=== PATIENT | male | born 1940 | race Hispanic/Latino ===

== ENCOUNTER 2017-09-19 12:05 | Inpatient (IN) | payer MEDICARE ==
[2017-09-19 12:16] VITALS: BMI 33.5
[2017-09-19 12:34] LABS: VENOUS BLOOD GAS BASE EXCESS 1.4 mmol/L (0.0-2.0); VENOUS BLOOD GAS PO2 41 mm/Hg (30-55); VENOUS BLOOD PH 7.34 (7.32-7.43)
[2017-09-19 12:36] LABS: BASO # 0.04 K/mm3 (0.0-2.0); BASO % 0.3 % (0.0-3.0); EOS # 0.1 (0.0-0.7); GRAN # 11.48 (1.4-6.5); GRAN % 90.3 % (50.0-68.0); HEMOGLOBIN 15.4 g/dL (14.0-18.0); LYMPH # 0.7 (1.2-3.4); LYMPH % 5.6 % (22.0-35.0); MEAN CELL VOLUME 88.6 fl (80.0-105.0); MEAN CORPUSCULAR HEMOGLOBIN 30.4 pg (25.0-35.0); MEAN CORPUSCULAR HGB CONC 34.3 g/dl (31.0-37.0); MEAN PLATELET VOLUME 10.3 fl (7.0-11.0); MONO # 0.4 (0.1-0.6); MONO % 2.8 % (1.0-6.0); PLATELET COUNT 123 10^3/uL (120.0-450.0); RBC 5.07 10^6/uL (3.5-6.1); RED CELL DISTRIBUTION WIDTH 14.2 % (11.5-14.5); WHITE BLOOD COUNT 12.7 10^3/ul (4.5-11.0)
--- NOTE | 2017-09-19 12:37 | ED PDOC ---
Arrival/HPI - General Chief Complaint: Altered Mental Status Time Seen by Provider: 09/19/17 12:23 Historian: Patient, Spouse, Family (daughter) - History of Present Illness Narrative History of Present Illness (Text): 09/19/17 12:30 76 y/o male, whose PMH includes HTN, hypercholesterolemia, DM, and kidney stones , who presents to the emergency department accompanied with and daughter, s /p showing signs of confusion prior to arrival. 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 According to his , she states patient "is not acting himself". Patient notes he is asymptomatic and is not confused. Very limited HPI was provided from patient. He declines chest pain, shortness of breath, nausea, vomiting, diarrhea, dizziness, or other complaints. Time/Duration: Prior to Arrival Symptom Onset: Sudden Symptom Course: Unchanged Context: Home Past Medical History - Provider Review Nursing Documentation Reviewed: Yes - Infectious Disease Hx of Infectious Diseases: None - Cardiac Hx Hypertension: Yes - Endocrine/Metabolic Hx Diabetes Mellitus Type 2: Yes - Psychiatric Hx Substance Use: No - Anesthesia Hx Anesthesia: No Family/Social History - Physician Review Nursing Documentation Reviewed: Yes Family/Social History: Unknown Family HX Smoking Status: Current Some Days Smoker Hx Alcohol Use: No Hx Substance Use: No Allergies/Home Meds Allergies/Adverse Reactions: Allergies No Known Allergies Allergy (Verified 09/19/17 12:16) Home Medications: Home Meds Medication Instructions Recorded Confirmed Aspirin [Adult Aspirin] 325 mg PO DAILY 09/19/17 09/19/17 Cod Liver Oil 1 cap PO DAILY 09/19/17 09/19/17 Folic Acid 1 mg PO DAILY 09/19/17 09/19/17 MetFORMIN [glucOPHAGE] 1,000 mg PO DAILY 09/19/17 09/19/17 Multivitamin/Iron/Folic Acid 1 each PO DAILY 09/19/17 09/19/17 [Centrum Adults Tablet] Silodosin [Rapaflo] 8 mg PO DAILY 09/19/17 09/19/17 Simvastatin [Zocor] 40 mg PO DAILY 09/19/17 09/19/17 Valsartan/Hydrochlorothiazide 1 tab PO DAILY 09/19/17 09/19/17 [Valsartan and Hydrochlorothiazide 12.5 mg-80 ] Vitamin B Complex [Vitamin B50 1 cap PO DAILY 09/19/17 09/19/17 Super Complex] Review of Systems - Review of Systems Constitutional: absent: Fevers Eyes: absent: Vision Changes Respiratory: absent: SOB Cardiovascular: absent: Chest Pain Gastrointestinal: absent: Abdominal Pain Genitourinary Male: absent: Dysuria Musculoskeletal: absent: Back Pain Skin: absent: Rash Neurological: Gait Changes (unsteady ), Other (confusion according to family ). absent: Headache, Dizziness Endocrine: absent: Diaphoresis Physical Exam Vital Signs Reviewed: Yes Vital Signs Temp Pulse Resp BP Pulse Ox 09/19/17 20:52 80 18 118/72 97 09/19/17 18:42 98.5 F 84 18 116/54 L 95 09/19/17 14:22 100.6 F H 97 H 18 117/53 L 95 09/19/17 13:50 101 F H 09/19/17 12:06 101.0 F H 109 H 18 138/75 95 Temperature: Febrile Blood Pressure: Normal Pulse: Tachycardic Respiratory Rate: Normal Appearance: Positive for: Well-Appearing, Non-Toxic, Comfortable Pain Distress: None Mental Status: Positive for: Alert and Oriented X 3 Finger Stick Blood Glucose: 193 - Systems Exam Head: Present: Atraumatic, Normocephalic Pupils: Present: PERRL Extroacular Muscles: Present: EOMI Conjunctiva: Present: Normal Respiratory/Chest: Present: Clear to Auscultation, Good Air Exchange. No: Respiratory Distress, Accessory Muscle Use, Wheezes, Decreased Breath Sounds, Rales, Retracting, Rhonchi Cardiovascular: Present: Regular Rate and Rhythm, Normal S1, S2. No: Murmurs Abdomen: Present: Normal Bowel Sounds. No: Tenderness, Distention, Peritoneal Signs, Rebound, Guarding Upper Extremity: Present: Normal Inspection, Normal ROM, NORMAL PULSES, Neurovascularly Intact, Capillary Refill < 2s. No: Cyanosis, Edema, Tenderness , Swelling, Erythema Lower Extremity: Present: Normal Inspection, NORMAL PULSES, Normal ROM, Neurovascularly Intact, Capillary Refill < 2 s. No: Edema, Deformity Neurological: Present: GCS=15, CN II-XII Intact, Speech Normal, Motor Func Grossly Intact, Normal Sensory Function, Normal Cerebellar Funct, Norm Deep Tendon Reflexes, Memory Normal Skin: Present: Warm, Dry, Normal Color. No: Rashes Psychiatric: Present: Alert, Oriented x 3, Normal Insight, Normal Concentration Medical Decision Making ED Course and Treatment: 09/19/17 Impressions: 76 y/o male with unremarkable physical exam complaining of confusion and unsteady balance. Plans: -- CT head -- Labs -- CXR -- Urinalysis Progress Notes: 09/19/17 13:00 EKG: Ordered, reviewed, and independently interpreted the EKG. Rate : 108 BPM Rhythm : Sinus tachycardia Interpretation : No ST-segment elevations or depressions, no T-wave inversions, normal intervals. 09/19/17 13:07 CODE SEPSIS CALLED AT 1:07 PM 09/19/17 13:12 CT Head read by me detects subacute area infared. I will contact Dr. Montes, neurologist, to discuss plan and management. Patient is currently being given fluids due to sepsis and waiting for Chest X-ray results. 09/19/17 13:20 Case was discussed with Dr. Montes, who is aware of plan and recommends MRI of brain with and without contrast. He also suggest to give patient Tylenol for fever and baby Aspirin. Dr. Montes will be contacted when MRI results come back. 09/19/17 13:[address]: Creator : Patrick Arce MD FINDINGS: HEMORRHAGE: No intracranial hemorrhage. BRAIN: No mass effect or edema. There is a wedge-shaped area of hypodensity in the right inferior frontal lobe measuring 16 x 36 mm. This could represent a subacute or chronic infarct. There are no prior studies for comparison VENTRICLES: Unremarkable. No hydrocephalus. CALVARIUM: Unremarkable. PARANASAL SINUSES: Unremarkable as visualized. No significant inflammatory changes. MASTOID AIR CELLS: Unremarkable as visualized. No inflammatory changes. OTHER FINDINGS: None. IMPRESSION: There is a wedge-shaped area of hypodensity in the right inferior frontal lobe measuring 16 x 36 mm. This could represent a subacute or chronic infarct. There are no prior studies for comparison 09/19/17 14:00 Chest X-ray: Creator : Patrick Arce MD COMPARISON: 09/13/2015 FINDINGS: LUNGS: No active pulmonary disease. PLEURA: No significant pleural effusion identified, no pneumothorax apparent. CARDIOVASCULAR: Normal. OSSEOUS STRUCTURES: No significant abnormalities. VISUALIZED UPPER ABDOMEN: Normal. OTHER FINDINGS: None. IMPRESSION: No active disease. 09/19/17 17:00 Brain MRI: Creator : Patrick Arce MD FINDINGS: HEMORRHAGE: None DWI:No evidence of an acute or early subacute infarction. BRAIN PARENCHYMA: There is an enhancing mass arising from the anterior cranial fossa in the midline. This is most consistent with a meningioma. This measures 29 mm wide by 12 mm in height and 20 mm anterior to posterior. There is vasogenic edema in the right frontal lobe ENHANCEMENT: As above VENTRICLES: Unremarkable. No hydrocephalus. CRANIUM: Unremarkable. ORBITS: Grossly unremarkable. PARANASAL SINUSES/MASTOIDS:Clear VASCULAR SYSTEM: Skull base flow voids intact. OTHER FINDINGS: None . IMPRESSION: There is an enhancing mass arising from the anterior cranial fossa in the midline. This is most consistent with a meningioma. This measures 29 mm wide by 12 mm in height and 20 mm anterior to posterior. There is vasogenic edema in the right frontal lobe. No evidence of infarct. 09/19/17 17:20 PROCEDURE: LUMBAR PUNCTURE Performed by the emergency provider Dr. Jin Time: 05:00 Consent: Informed consent, after discussion of the risks, benefits, and alternatives to the procedure, was obtained Timeout: A timeout to verify the correct patient, procedure, and site was performed immediately prior to the procedure. Indication: Two attempts were made and unsuccessful. Standard 3 in needle was used and spinal needle the 2nd time. Anesthesia: Local anesthesia: See MAR for details. Preparation: Patient was prepped and draped in the usual sterile fashion and sterile technique was used. The landmarks were identified. Needle size: A 3 in gauge spinal needle. Lumbar entry space: L3-L4 and L4-L5 level. Fluid appearance: Unsuccessful. Post-procedure: Site cleansed and adhesive bandage applied. The patient tolerated the procedure well with no immediate complications. does not want radioligst to do the procedure under flouro - Lab Interpretations Microbiology Results: Microbiology Results 09/19/17 13:55 Blood-Venous Blood Culture - Preliminary NO GROWTH AFTER 24 HOURS 09/19/17 12:11 Blood-Venous Blood Culture - Preliminary NO GROWTH AFTER 24 HOURS Lab Results: 09/19/17 12:11 09/19/17 12:11 Lab Results 09/19/17 18:00: Hepatitis A IgM Ab Negative, Hep Bs Antigen Negative, Hep B Core IgM Ab Negative, Hepatitis C Antibody Negative 09/19/17 16:43: pO2 202 H, VBG pH 7.39, VBG pCO2 42.0, VBG HCO3 25.4, VBG Total CO2 26.7, VBG O2 Sat (Calc) 99.6 H, VBG Base Excess 0.3, VBG Potassium 3.9, Sodium 137.0, Chloride 103.0, Glucose 215 H, Lactate 2.3 H, FiO2 21.0, Venous Blood Potassium 3.9 09/19/17 15:25: Urine Color Yellow, Urine Appearance Sl cloudy, Urine pH 6.0, Ur Specific [place] 1.025, Urine Protein Trace H, Urine Glucose (UA) Negative, Urine Ketones Negative, Urine Blood Moderate H, Urine Nitrate Negative, Urine Bilirubin Negative, Urine Urobilinogen 1.0 H, Ur Leukocyte Esterase Trace H, Urine RBC 10 - 15, Urine WBC 2 - 5, Ur Epithelial Cells 4 - 5, Urine Bacteria Few 09/19/17 13:20: Ammonia < 9 L 09/19/17 12:11: Sodium 140, Chloride 102, Potassium 4.1, Carbon Dioxide 28, Anion Gap 14, BUN 15, Creatinine 0.9, Est GFR ( Amer) > 60, Est GFR (Non- Af Amer) > 60, Random Glucose 187 H, Calcium 9.9, Phosphorus 2.0 L, Magnesium 1.8, Total Bilirubin 1.6 H, AST 70 H, ALT 78 H, Alkaline Phosphatase 104, Lactate Dehydrogenase 496, Total Creatine Kinase 51, Troponin I < 0.01, Total Protein 7.3, Albumin 4.4, Globulin 2.9, Albumin/Globulin Ratio 1.6 09/19/17 12:11: pO2 41, VBG pH 7.34, VBG pCO2 52.0, VBG HCO3 28.1 H, VBG Total CO2 29.7 H, VBG O2 Sat (Calc) 79.7 H, VBG Base Excess 1.4, VBG Potassium 4.1, Sodium 139.0, Chloride 101.0, Glucose 193 H, Lactate 2.2 H, FiO2 21.0, Venous Blood Potassium 4.1 09/19/17 12:11: PT 12.6 H, INR 1.09 09/19/17 12:11: WBC 12.7 H, RBC 5.07, Hgb 15.4, Hct 44.9, MCV 88.6, MCH 30.4, MCHC 34.3, RDW 14.2, Plt Count 123, MPV 10.3, Gran % 90.3 H, Lymph % (Auto) 5.6 L, Crawford % (Auto) 2.8, Eos % (Auto) 1.0 L, Baso % (Auto) 0.3, Gran # 11.48 H, Lymph # (Auto) 0.7 L, Crawford # (Auto) 0.4, Eos # (Auto) 0.1, Baso # (Auto) 0.04, Neutrophils % (Manual) 90 H, Band Neutrophils % 3 H, Lymphocytes % (Manual) 4 L , Monocytes % (Manual) 1, Eosinophils % (Manual) 2 I have reviewed the lab results: Yes - RAD Interpretation Radiology Orders: 09/19/17 12:23 HEAD W/O CONTRAST [CT] Stat CHEST PORTABLE [RAD] Stat 09/19/17 13:16 BRAIN W & WO CONTRAST [MRI] Stat Banker Mason: Radiologist - EKG Interpretation Interpreted by ED Physician: Yes Type: 12 lead EKG - Medication Orders Current Medication Orders: Aspirin (Aspirin) 325 mg PO DAILY [facility] Last Admin: 09/20/17 09:54 Dose: 325 mg Atorvastatin Calcium (Lipitor) 20 mg PO DAILY [facility] Folic Acid (Folic Acid) 1 mg PO DAILY [facility] Last Admin: 09/20/17 09:54 Dose: 1 mg Hydrochlorothiazide (Microzide) 12.5 mg PO DAILY [facility] Last Admin: 09/20/17 09:54 Dose: 12.5 mg Ceftriaxone Sodium (Rocephin 2 Gm Ivpb) 2 gm in 100 mls @ 100 mls/hr IVPB DAILY [facility] PRN Reason: Protocol Stop: 09/29/17 10:01 Last Admin: 09/20/17 09:54 Dose: 100 mls/hr eMAR Start Stop Document 09/20/17 09:54 ANTOALL (Rec: 09/20/17 09:54 ANTOALL [id number]) Intravenous Solution Start Date 09/20/17 Start Time 09:54 End Date 08/06/18 End time 10:54 Total Infusion Time 60 Vancomycin HCl (Vancomycin 1gm) 1 gm in 250 mls @ 167 mls/hr IVPB Q12H [facility] PRN Reason: Protocol Stop: 09/28/17 23:01 Last Admin: 09/20/17 11:15 Dose: 167 mls/hr eMAR Start Stop Document 09/20/17 11:15 ANTOALL (Rec: 09/20/17 11:15 ANTOALL [id number]) Intravenous Solution Start Date 09/20/17 Start Time 11:15 End Date 09/20/17 End time 12:45 Total Infusion Time 90 Acyclovir 750 mg/ Sodium (Chloride) 250 mls @ 250 mls/hr IV Q8 [facility] PRN Reason: Protocol Stop: 09/29/17 06:01 Last Admin: 09/20/17 14:46 Dose: 250 mls/hr eMAR Start Stop Document 09/20/17 14:46 ANTOALL (Rec: 09/20/17 14:48 ANTOALL [id number]) Intravenous Solution Start Date 09/20/17 Start Time 14:47 End Date 09/20/17 End time 16:17 Total Infusion Time 90 Insulin Human Regular (Humulin R Med) 0 units SC ACHS [facility] PRN Reason: Protocol Last Admin: 09/20/17 17:24 Dose: Not Given Non-Admin Reason: Blood Sugar Parameter Levetiracetam (Keppra) 500 mg PO BID [facility] Last Admin: 09/20/17 17:24 Dose: 500 mg Losartan Potassium (Cozaar) 50 mg PO DAILY [facility] Last Admin: 09/20/17 09:54 Dose: 50 mg MAR Pulse and Blood Pressure Document 09/20/17 09:54 ANTOALL (Rec: 09/20/17 09:54 ANTOALL [id number]) Pulse Pulse Rate (60-90) 70 Blood Pressure Blood Pressure (100/60-150/90) 118/65 Metformin HCl (Glucophage) 1,000 mg PO DAILY [facility] Last Admin: 09/20/17 11:55 Dose: Potassium Phos/Sodium Phos (Neutra-Phos) 1 pkt PO BID [facility] Stop: 09/22/17 18:01 Last Admin: 09/20/17 17:25 Dose: 1 pkt Discontinued Medications Acetaminophen (Tylenol 325mg Tab) 975 mg PO STAT [facility] Stop: 09/19/17 13:16 Last Admin: 09/19/17 13:50 Dose: 975 mg MAR Pain/Vitals Document 09/19/17 13:50 GMD (Rec: 09/19/17 13:50 GMD [id number]) Vitals Temperature (97.6 F-99.6 F) 101 F Temperature Source Oral Aspirin (Aspirin Chewable) 81 mg PO STAT [facility] Stop: 09/19/17 13:16 Last Admin: 09/19/17 13:55 Dose: 81 mg Sodium Chloride (Sodium Chloride 0.9%) 1,000 mls @ 999 mls/hr IV .Q1H1M STA Stop: 09/19/17 14:06 Last Admin: 09/19/17 13:12 Dose: 999 mls/hr eMAR Start Stop Document 09/19/17 13:12 GMD (Rec: 09/19/17 13:12 GMD [id number]) Intravenous Solution Start Date 09/19/17 Start Time 13:12 End Date 09/19/17 End time 14:13 Total Infusion Time 61 Acyclovir 500 mg/ Sodium (Chloride) 100 mls @ 100 mls/hr IV STAT [facility] PRN Reason: Protocol Stop: 09/19/17 17:29 Last Admin: 09/19/17 18:52 Dose: 100 mls/hr eMAR Start Stop Document 09/19/17 18:52 GMD (Rec: 09/19/17 18:52 GMD [id number]) Intravenous Solution Start Date 09/19/17 Start Time 18:52 End Date 09/19/17 End time 19:52 Total Infusion Time 60 Ceftriaxone Sodium (Rocephin 1 Gram Ivpb) 1 gm in 100 mls @ 200 mls/hr IVPB STAT [facility] PRN Reason: Protocol Stop: 09/19/17 16:59 Last Admin: 09/19/17 16:45 Dose: 200 mls/hr eMAR Start Stop Document 09/19/17 16:45 GMD (Rec: 09/19/17 16:45 GMD [id number]) Intravenous Solution Start Date 09/19/17 Start Time 16:45 End Date 09/19/17 End time 17:15 Total Infusion Time 30 Vancomycin HCl (Vancomycin 1gm) 1 gm in 250 mls @ 167 mls/hr IVPB STAT [facility] PRN Reason: Protocol Stop: 09/19/17 17:59 Last Admin: 09/19/17 20:18 Dose: 167 mls/hr eMAR Start Stop Document 09/19/17 20:18 GMD (Rec: 09/19/17 20:18 GMD [id number]) Intravenous Solution Start Date 09/19/17 Start Time 20:18 End Date 09/19/17 End time 21:48 Total Infusion Time 90 Dexamethasone 4 mg/ Sodium (Chloride) 51 mls @ 150 mls/hr IV ONCE ONE Stop: 09/20/17 13:09 Last Admin: 09/20/17 13:40 Dose: 150 mls/hr eMAR Start Stop Document 09/20/17 13:40 ANTOALL (Rec: 09/20/17 13:40 ANTOALL [id number]) Intravenous Solution Start Date 09/20/17 Start Time 13:40 End Date 09/20/17 End time 14:01 Total Infusion Time 21 NIHSS Stroke Scale 3 - Date/Time Evaluation Performed Date Performed: 09/19/17 Time Performed: 12:20 When Was NIHSS Performed: Baseline - How Severe is the Stroke Level of Consciousness: 0=Alert LOC to Questions: 0=Both comments correct LOC to commands: 0=Obeys both correctly Best Gaze: 0=Normal Visual: 0=No visual loss Facial: 0=Normal Motor Arm - Left: 0=No drift Motor Arm - Right: 0=No drift Motor Leg - Left: 0=No drift Motor Leg - Right: 0=No drift Limb Ataxia: 0=Absent Sensory: 0=Normal Best Language: 0=No aphasia Dysarthia: 0=Normal articulation Extinction & Inattention (Neglect): 0=Normal, no object Score: 0 - Scribe Statement The provider has reviewed the documentation as recorded by the Scribe Scribe Attestation: Jahaira Young MD Scribe Attestation: All medical record entries made by the Scribe were at my direction and personally dictated by me. I have reviewed the chart and agree that the record accurately reflects my personal performance of the history, physical exam, medical decision making, and the department course for this patient. I have also personally directed, reviewed, and agree with the discharge instructions and disposition. Disposition/Present on Arrival - Present on Arrival Any Indicators Present on Arrival: No History of DVT/PE: No History of Uncontrolled Diabetes: No Urinary Catheter: No History of Decub. Ulcer: No History Surgical Site Infection Following: None - Disposition Have Diagnosis and Disposition been Completed?: Yes Diagnosis: Meningioma, Sepsis, Altered mental status, Gait instability Disposition: HOSPITALIZED Disposition Time: 20:00 Patient Plan: Admission Patient Problems: Current Active Problems Problem Status Onset Altered mental status Acute Gait instability Acute Meningioma Acute Sepsis Acute Condition: FAIR
[2017-09-19 12:39] LABS: INR 1.09; PROTHROMBIN TIME 12.6 SECONDS (9.4-12.5)
[2017-09-19 12:44] LABS: ALB/GLOB RATIO 1.6 (1.1-1.8); ALBUMIN 4.4 g/dL (3.0-4.8); ALT/SGPT 78 U/L (7-56); AST/SGOT 70 U/L (17-59); BLOOD UREA NITROGEN 15 mg/dL (7-21); CALCIUM 9.9 mg/dL (8.4-10.5); GFR AFRICAN-AMERICAN > 60; GFR NON-AFRICAN AMERICAN > 60
[2017-09-19 12:54] LABS: TROPONIN I < 0.01 ng/mL
--- NOTE | 2017-09-19 13:02 | CT ---
Date of service: 09/19/2017 PROCEDURE: CT HEAD WITHOUT CONTRAST. HISTORY: confusion COMPARISON: None available. TECHNIQUE: Axial computed tomography images were obtained through the head/brain without intravenous contrast. Radiation dose: Total exam DLP = 924 mGy-cm. This CT exam was performed using one or more of the following dose reduction techniques: Automated exposure control, adjustment of the mA and/or kV according to patient size, and/or use of iterative reconstruction technique. FINDINGS: HEMORRHAGE: No intracranial hemorrhage. BRAIN: No mass effect or edema. There is a wedge-shaped area of hypodensity in the right inferior frontal lobe measuring 16 x 36 mm. This could represent a subacute or chronic infarct. There are no prior studies for comparison VENTRICLES: Unremarkable. No hydrocephalus. CALVARIUM: Unremarkable. PARANASAL SINUSES: Unremarkable as visualized. No significant inflammatory changes. MASTOID AIR CELLS: Unremarkable as visualized. No inflammatory changes. OTHER FINDINGS: None. IMPRESSION: There is a wedge-shaped area of hypodensity in the right inferior frontal lobe measuring 16 x 36 mm. This could represent a subacute or chronic infarct. There are no prior studies for comparison
[2017-09-19] MEDS ORDERED: Sodium Chloride 0.9% 1,000 ML IV STA (13:06)
[2017-09-19 13:08] LABS: BAND 3 % (0-2); EOSINOPHIL 2 % (0.0-3.0); LYMPHOCYTE 4 % (22.0-35.0); MONOCYTE 1 % (1.0-6.0); NEUTROPHIL 90 % (50.0-70.0)
--- NOTE | 2017-09-19 13:09 | RAD ---
Date of service: 09/19/2017 HISTORY: Confusion and Generalized Weakness COMPARISON: 09/13/2015 FINDINGS: LUNGS: No active pulmonary disease. PLEURA: No significant pleural effusion identified, no pneumothorax apparent. CARDIOVASCULAR: Normal. OSSEOUS STRUCTURES: No significant abnormalities. VISUALIZED UPPER ABDOMEN: Normal. OTHER FINDINGS: None. IMPRESSION: No active disease.
[2017-09-19 15:45] LABS: URINE APPEARANCE SL CLOUDY (CLEAR); URINE BILIRUBIN NEGATIVE (NEGATIVE); URINE BLOOD MODERATE (NEGATIVE); URINE COLOR YELLOW (YELLOW); URINE GLUCOSE (UA) NEGATIVE (NEGATIVE); URINE LEUKOCYTE ESTERASE TRACE Leu/uL (NEGATIVE); URINE PROTEIN TRACE mg/dL (<30 mg/dL)
[2017-09-19] MEDS ORDERED: Gadodiamide 287 MG/ML VIAL (15ML) IV ONE (16:01)
[2017-09-19 16:09] LABS: URINE BACTERIA FEW (NEG)
[2017-09-19] MEDS ORDERED: cefTRIAXone 1 gm 1 GM/100 ML BAG IVPB STA (16:30)
[2017-09-19] MEDS ORDERED: Acyclovir 500 MG in Sodium Chloride 0.9% 100 ML IV STA (16:30)
[2017-09-19] MEDS ORDERED: Vancomycin 1gm in NS 250ml 1 GM/250 ML BAG IVPB STA (16:30)
--- NOTE | 2017-09-19 16:49 | MRI ---
Date of service: 09/19/2017 PROCEDURE: MRI BRAIN WITH AND WITHOUT CONTRAST HISTORY: Subacute Infarct Seen on CT Scan COMPARISON: CT scan earlier same day TECHNIQUE: Multiplanar, multisequence MR images of the brain were obtained with and without intravenous contrast enhancement. 15 cc of Omniscan FINDINGS: HEMORRHAGE: None DWI: No evidence of an acute or early subacute infarction. BRAIN PARENCHYMA: There is an enhancing mass arising from the anterior cranial fossa in the midline. This is most consistent with a meningioma. This measures 29 mm wide by 12 mm in height and 20 mm anterior to posterior. There is vasogenic edema in the right frontal lobe ENHANCEMENT: As above VENTRICLES: Unremarkable. No hydrocephalus. CRANIUM: Unremarkable. ORBITS: Grossly unremarkable. PARANASAL SINUSES/MASTOIDS: Clear VASCULAR SYSTEM: Skull base flow voids intact. OTHER FINDINGS: None . IMPRESSION: There is an enhancing mass arising from the anterior cranial fossa in the midline. This is most consistent with a meningioma. This measures 29 mm wide by 12 mm in height and 20 mm anterior to posterior. There is vasogenic edema in the right frontal lobe No evidence of infarct
[2017-09-19 16:53] LABS: VENOUS BLOOD GAS BASE EXCESS 0.3 mmol/L (0.0-2.0); VENOUS BLOOD GAS PO2 202 mm/Hg (30-55); VENOUS BLOOD PH 7.39 (7.32-7.43)
[2017-09-19] MEDS ORDERED: Lidocaine PF 2% (5 ml) Inj (For Cardiac Arrhy) ONE (17:01)
[2017-09-19 22:14] LABS: VENOUS BLOOD GAS BASE EXCESS 0.9 mmol/L (0.0-2.0); VENOUS BLOOD GAS PO2 38 mm/Hg (30-55); VENOUS BLOOD PH 7.34 (7.32-7.43)
[2017-09-19 22:55] LABS: BARBITURATES, UR NEGATIVE (NEGATIVE); BENZODIAZEPINES, UR NEGATIVE (NEGATIVE); OPIATES, UR NEGATIVE (NEGATIVE); PHENCYCLIDINE, UR NEGATIVE (NEGATIVE)
[2017-09-19] MEDS: Vancomycin 1gm in NS 250ml 1 GM/250 ML BAG IVPB SCH (23:25)
[2017-09-20 06:59] LABS: VENOUS BLOOD GAS BASE EXCESS 0.2 mmol/L (0.0-2.0); VENOUS BLOOD GAS PO2 62 mm/Hg (30-55); VENOUS BLOOD PH 7.33 (7.32-7.43)
[2017-09-20 07:38] LABS: MEAN CELL VOLUME 88.6 fl (80.0-105.0); MEAN CORPUSCULAR HEMOGLOBIN 29.2 pg (25.0-35.0); MEAN PLATELET VOLUME 10.2 fl (7.0-11.0); RBC 4.55 10^6/uL (3.5-6.1); RED CELL DISTRIBUTION WIDTH 14.3 % (11.5-14.5)
[2017-09-20 07:40] LABS: HEMOGLOBIN 13.3 g/dL (14.0-18.0)
[2017-09-20 07:53] LABS: ALB/GLOB RATIO 1.5 (1.1-1.8); ALBUMIN 3.7 g/dL (3.0-4.8); ALT/SGPT 55 U/L (7-56); AST/SGOT 34 U/L (17-59); BLOOD UREA NITROGEN 19 mg/dL (7-21); CALCIUM 9.2 mg/dL (8.4-10.5); GFR AFRICAN-AMERICAN > 60; GFR NON-AFRICAN AMERICAN > 60
--- NOTE | 2017-09-20 08:37 | CARD ---
APPROVED REPORT Date of service: 09/19/2017 EKG Measurement Heart [id number] AL [id number] <Conclusion> Sinus tachycardia with premature atrial complexes Otherwise normal ECG
[2017-09-20] MEDS: Potassium & Sodium Phosphate PO SCH ×2 (09:56→17:25)
[2017-09-20] MEDS ORDERED: cefTRIAXone 2 GM IN NS 2 GM/100 ML BAG IVPB SCH (10:00)
[2017-09-20] MEDS: Vancomycin 1gm in NS 250ml 1 GM/250 ML BAG IVPB SCH ×2 (11:15→23:31)
[2017-09-20 12:32] LABS: HEPATITIS B SURFACE AG Negative (NEGATIVE)
[2017-09-20 12:38] LABS: HEPATITIS A IGM NEGATIVE (NEGATIVE); HEPATITIS B CORE AB NEGATIVE (NEGATIVE)
[2017-09-20] MEDS ORDERED: Dexamethasone 4 MG in Sodium Chloride 0.9% 50 ML IV ONE (12:49)
[2017-09-20 13:50] LABS: HEPATITIS C ANTIBODY NEGATIVE (NEGATIVE)
--- NOTE | 2017-09-20 14:30 | CON ---
Copied To: Jeferson Cormier MD Attending MD: Jeferson Cormier MD DATE: 09/20/2017 NEUROLOGY CONSULTATION CHIEF COMPLAINT: Altered mental status. HISTORY OF PRESENT ILLNESS: A 76-year-old man with history of hypertension, hypercholesterolemia, type 2 diabetes mellitus, and kidney stones, who presented to the ER accompanied by his and daughter confusion prior to arrival. Apparently, the patient was confused, sitting in the street, unaware of what time that he started acting like this. He is not acting himself, but no focal weakness of the extremities. He apparently is at his baseline, following simple commands, no dysphasia or aphasia noticed. No focal motor weakness. He underwent an MRI of the brain, which showed an enhancing mass from the anterior cranial fossa of the midline most consistent with a meningioma measuring 29 mm wide and 12 mm of height and 20 mm anterior to posterior with vasogenic edema in the right frontal lobe, no evidence of infarct likely causative for his symptoms. Neurosurgery consult has been placed. We gave one dose of IV dexamethasone 4 mg x1 dose for vasogenic edema, placed on prophylactic Keppra for his seizure precautions. PAST MEDICAL HISTORY: As above. SOCIAL HISTORY: No illicit drug use, smoking, or EtOH abuse. ALLERGIES: NO KNOWN DRUG ALLERGIES. MEDICATIONS: Reviewed by nurse per reconciliation sheet. FAMILY HISTORY: Noncontributory. REVIEW OF SYSTEMS: Fourteen-point review of systems is negative except as per the HPI. LABORATORY DATA: Sodium is 142, potassium 4.1, chloride of 106, carbon dioxide of 26. BUN of 19, creatinine of 0.8. Random glucose of 162. PHYSICAL EXAMINATION: VITAL SIGNS: Temperature 98.1, pulse rate of 70, blood pressure 118/65, respiratory rate of 18, oxygen saturation 96% by room air. GENERAL: The patient is sitting up in bed, in no acute distress. HEENT: Head is atraumatic and normocephalic. PERRLA. Extraocular muscles intact. NECK: Supple. No JVD. No adenopathy noted. LUNGS: Clear to auscultation. No adventitious sounds. HEART: S1 and S2. Normal rate and rhythm. No murmur, rubs, or gallops. ABDOMEN: Soft, nontender, and nondistended. Bowel sounds are present. EXTREMITIES: No clubbing. No cyanosis. Peripheral pulses are 2+ felt bilaterally. NEUROLOGIC: The patient is alert and oriented to person, place, month, and year. Speech is fluent without any errors. Cranial nerves II through XII intact. Poor attention span and slow thought process. Motor exam: Moves all extremities equally. No pronator drift seen. Sensory exam: Light touch, pinprick, proprioception, and vibration are intact. DTRs are 2+ throughout, 1 at both knees. Coordination: Vpatwo-xg-eame intact. Gait is deferred for now. There is no dysmetria noted. ASSESSMENT AND PLAN: This is a 76-year-old man with history of type 2 diabetes mellitus, hypercholesterolemia, hypertension, kidney stones, who presented with an acute onset of confusion, not acting himself, found to have an enhancing mass in the right frontal lobe with vasogenic edema consistent with meningioma. He has altered mental status and personality change as well as confusion secondary to vasogenic edema of the right frontal meningoma. At this time, we recommend: 1. Neurosurgical evaluation for possible section of the meningioma. 2. IV dexamethasone 4 mg x1 dose for vasogenic edema. 3. Keppra 250 mg IV p.o. every 12 hours for seizure prophylaxis. 4. Continue with current present medical management. Thank you for this consult. Jeferson Cormier MD
[2017-09-20] MEDS: Insulin Reg-MEDIUM-Coverage SC SCH ×2 (17:24→22:00)
[2017-09-20] MEDS ORDERED: Dexamethasone 4 mg/1 ml IVP SCH (18:00)
--- NOTE | 2017-09-20 18:15 | CP.PCM.CON ---
History of Present Illness - History of Present Illness History of Present Illness: 76 year old male with PMH of HTN, dyslipidemia, DM, nephrolithiasis, obesity with BMI 34 was brought in to [facility] by his family after they noted to be confused and with unsteady gait. The patient was also noted to be "acting weirdly." There was no note of fevers, no diarrhea, no vomiting, no loss of consciousness , no falls, no convulsions. Currently the patient is comfortable on chair, awake and alert, denies headache or dizziness, no chest pain, no cough, no abdominal pain, no dysuria. The patient was noted to have fever on admission and Infectious Diseases consult is requested to further evaluate and manage. Review of Systems - Review of Systems All systems: reviewed and no additional remarkable complaints except (as per HPI ) Past Patient History - Infectious Disease Hx of Infectious Diseases: None - Past Social History Smoking Status: Never Smoked - CARDIAC Hx Hypertension: Yes - ENDOCRINE/METABOLIC Hx Diabetes Mellitus Type 2: Yes - MUSCULOSKELETAL/RHEUMATOLOGICAL Hx Falls: No - PSYCHIATRIC Hx Substance Use: No - ANESTHESIA Hx Anesthesia: No Meds Allergies/Adverse Reactions: Allergies Allergy/AdvReac Type Severity Reaction Status Date / Time No Known Allergies Allergy Verified 09/19/17 12:16 - Medications Medications: Current Medications Aspirin (Aspirin) 325 mg PO DAILY [facility] Last Admin: 09/20/17 09:54 Dose: 325 mg Folic Acid (Folic Acid) 1 mg PO DAILY [facility] Last Admin: 09/20/17 09:54 Dose: 1 mg Hydrochlorothiazide (Microzide) 12.5 mg PO DAILY [facility] Last Admin: 09/20/17 09:54 Dose: 12.5 mg Ceftriaxone Sodium (Rocephin 2 Gm Ivpb) 2 gm in 100 mls @ 100 mls/hr IVPB DAILY [facility] PRN Reason: Protocol Stop: 09/29/17 10:01 Last Admin: 09/20/17 09:54 Dose: 100 mls/hr Vancomycin HCl (Vancomycin 1gm) 1 gm in 250 mls @ 167 mls/hr IVPB Q12H [facility] PRN Reason: Protocol Stop: 09/28/17 23:01 Last Admin: 09/19/17 23:25 Dose: Not Given Acyclovir 750 mg/ Sodium (Chloride) 250 mls @ 250 mls/hr IV Q8 [facility] PRN Reason: Protocol Stop: 09/29/17 06:01 Last Admin: 09/20/17 06:30 Dose: 250 mls/hr Losartan Potassium (Cozaar) 50 mg PO DAILY [facility] Last Admin: 09/20/17 09:54 Dose: 50 mg Potassium Phos/Sodium Phos (Neutra-Phos) 1 pkt PO BID [facility] Stop: 09/22/17 18:01 Last Admin: 09/20/17 09:56 Dose: 1 pkt Physical Exam - Constitutional Appears: Non-toxic, Chronically Ill - Head Exam Head Exam: NORMAL INSPECTION - Neck Exam Neck exam: Negative for: Meningismus - Respiratory Exam Respiratory Exam: Decreased Breath Sounds - Cardiovascular Exam Cardiovascular Exam: +S1, +S2 - GI/Abdominal Exam GI & Abdominal Exam: Soft. absent: Tenderness Results - Vital Signs Recent Vital Signs: Last Vital Signs Temp 98.1 F 09/20/17 06:00 Pulse 70 09/20/17 09:54 Resp 18 09/20/17 06:00 BP 118/65 09/20/17 09:54 Pulse Ox 96 09/20/17 06:00 - Labs Result Diagrams: 09/20/17 07:00 09/20/17 07:00 Labs: Laboratory Results - last 24 hr 09/19/17 09/19/17 09/19/17 18:45 22:10 22:27 WBC RBC Hgb Hct MCV MCH MCHC RDW Plt Count MPV pO2 38 VBG pH 7.34 VBG pCO2 51.0 VBG HCO3 27.5 VBG Total CO2 29.1 H VBG O2 Sat (Calc) 77.4 H VBG Base Excess 0.9 VBG Potassium 3.6 Sodium 140.0 Chloride 106.0 Glucose 131 H Lactate 2.6 H FiO2 21.0 Potassium Carbon Dioxide Anion Gap BUN Creatinine Est GFR ( Amer) Est GFR (Non-Af Amer) Random Glucose Calcium Phosphorus 2.1 L Magnesium 1.8 Total Bilirubin AST ALT Alkaline Phosphatase Lactate Dehydrogenase Total Protein Albumin Globulin Albumin/Globulin Ratio Venous Blood Potassium 3.6 Urine Opiates Screen Negative Urine Methadone Screen Negative Ur Barbiturates Screen Negative Ur Phencyclidine Scrn Negative Ur Amphetamines Screen Negative U Benzodiazepines Scrn Negative U Oth Cocaine Metabols Negative U Cannabinoids Screen Negative 09/20/17 09/20/17 09/20/17 06:45 07:00 07:00 WBC 8.0 D RBC 4.55 Hgb 13.3 L D Hct 40.3 L MCV 88.6 MCH 29.2 MCHC 33.0 RDW 14.3 Plt Count 101 L MPV 10.2 pO2 62 H VBG pH 7.33 VBG pCO2 51.0 VBG HCO3 26.9 VBG Total CO2 28.5 H VBG O2 Sat (Calc) 95.8 H VBG Base Excess 0.2 VBG Potassium 4.1 Sodium 139.0 142 Chloride 107.0 106 Glucose 168 H Lactate 1.6 FiO2 21.0 Potassium 4.1 Carbon Dioxide 26 Anion Gap 14 BUN 19 Creatinine 0.8 Est GFR ( Amer) > 60 Est GFR (Non-Af Amer) > 60 Random Glucose 162 H Calcium 9.2 Phosphorus 2.4 L Magnesium 1.9 Total Bilirubin 1.2 AST 34 ALT 55 Alkaline Phosphatase 73 Lactate Dehydrogenase 441 Total Protein 6.2 Albumin 3.7 Globulin 2.5 Albumin/Globulin Ratio 1.5 Venous Blood Potassium 4.1 Urine Opiates Screen Urine Methadone Screen Ur Barbiturates Screen Ur Phencyclidine Scrn Ur Amphetamines Screen U Benzodiazepines Scrn U Oth Cocaine Metabols U Cannabinoids Screen Assessment & Plan - Assessment and Plan (Free Text) Plan: Assessment Systemic Inflammatory response syndrome probably due to vasogenic frontal cerebral edema associated with meningioma, R/O sepsis but so far no source identified HTN dyslipidemia DM nephrolithiasis obesity with BMI 34 Plan Started Vancomycin, Rocephin and Acyclovir pending blood, urine cx, PCT, CXR; reviewed MRI brain showing meningioma and vasogenic edema - if cultures are negative, will d/c antibiotics discussed with Dr. Cormier - started on systemic steroids will monitor clinically
--- NOTE | 2017-09-20 23:38 | HP ---
Copied To: Rogerio Elder MD Attending MD: Rogerio Elder MD HISTORY OF PRESENT ILLNESS: The patient is 76 years old, seen and examined. at the bedside. The patient is a poor historian; however, states the patient usually is in habit of waking up around 6 o'clock or so and he went down. 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 She states daughter found him confused and disoriented, so they called ambulance and he was brought to emergency room. According to , he was not talking right and he seemed confused. There is no history of nausea, vomiting. No diarrhea. No fever. No chills. No history of hemoptysis. No hematemesis. PAST MEDICAL HISTORY: Otherwise is significant for, 1. Hypertension. 2. Hyperlipidemia. 3. Ixg-ngmzzun-ccoihodke diabetes. 4. History of nephrolithiasis. ALLERGY: HE IS NOT ALLERGIC TO ANY MEDICATION. MEDICATIONS AT HOME: He is on B complexes, aspirin, multivitamin, valsartan, cod liver oil, simvastatin, Rapaflo and metformin. SOCIAL HISTORY: He is . Lives with his and actively smokes, but much less. PHYSICAL EXAMINATION: GENERAL: He is awake and alert, able to communicate. VITAL SIGNS: He is afebrile, pulse 65, respirations 18, blood pressure 102/53. LUNGS: Bilateral fair airflow. No rhonchi or crackle. HEART: S1 and S2 audible. ABDOMEN: Soft. Nontender. Obese. No hepatosplenomegaly. NEUROLOGICAL: He is awake, alert, oriented, communicative. Some facial asymmetry, but no motor deficit. LABORATORY EXAM: WBC is 12.7, today WBC is 8; hemoglobin 13.3; hematocrit 40.3; platelet 101. PT 12.6, INR 1.09. Chemistry: Sodium 142, potassium 4.1, chloride 106, CO2 of 26, BUN 19, creatinine 0.8, blood sugar 162, phosphorus 2.4, procalcitonin 0.15. Urinalysis showed moderate blood, trace leukocytes. Urine tox is negative. Hepatitis profile is negative. He had MRI of the brain done that shows mass arising from the anterior cranial fossa in the midline and this is most consistent with meningioma. This measures 29 mm wide and 12 mm in height. 20 mm anterior to posterior, there is vasogenic edema in the right frontal lobe. ASSESSMENT: 1. Status post altered mental status. 2. Anterior lobe meningioma. 3. Cgl-sbplvhm-tpsnfncja diabetes. 4. Hypertension. 5. Hyperlipidemia. PLAN: The patient is currently on aspirin. We will continue that. He is on losartan. He was given one dose of Decadron. We will continue him on folic acid. We will monitor his blood sugar. Has been started on Keppra for seizure prophylaxis. He is on statins. He is on Rocephin 2 g every 24 hours. Monitor his blood sugar. Physical therapy evaluation has been requested. The patient needs neurosurgical evaluation. I spoke to Dr. Govea, he will give different surgeons' name and the patient's family will decide who to follow. Rogerio Elder MD
[2017-09-21 07:23] VITALS: RESP 19; TEMP 98.4; O2SAT 96
[2017-09-21] MEDS: Insulin Reg-MEDIUM-Coverage SC SCH (09:25)
[2017-09-21] MEDS: Potassium & Sodium Phosphate PO SCH (09:29)
[2017-09-21 09:34] VITALS: BP 117/89; PULSE 60
[2017-09-21 11:59] LABS: ALB/GLOB RATIO 1.5 (1.1-1.8); ALBUMIN 3.9 g/dL (3.0-4.8); ALT/SGPT 45 U/L (7-56); AST/SGOT 23 U/L (17-59); BLOOD UREA NITROGEN 18 mg/dL (7-21); CALCIUM 9.6 mg/dL (8.4-10.5); GFR AFRICAN-AMERICAN > 60; GFR NON-AFRICAN AMERICAN > 60
--- NOTE | 2017-09-21 19:15 | CP.PCM.PN ---
Subjective - Date & Time of Evaluation Date of Evaluation: 09/21/17 Time of Evaluation: 11:15 - Subjective Subjective: No headache, no fevers. Objective - Vital Signs/Intake and Output Vital Signs (last 24 hours): Temp Pulse Resp BP Pulse Ox 98.4 F 53 L 19 118/74 96 09/21/17 06:00 09/21/17 06:00 09/21/17 06:00 09/21/17 06:00 09/21/17 06:00 Intake and Output: 09/21/17 09/21/17 06:59 18:59 Intake Total 540 Output Total 2 Balance 538 - Medications Medications: Current Medications Aspirin (Aspirin) 325 mg PO DAILY [facility] Last Admin: 09/20/17 09:54 Dose: 325 mg Atorvastatin Calcium (Lipitor) 20 mg PO DAILY [facility] Folic Acid (Folic Acid) 1 mg PO DAILY [facility] Last Admin: 09/20/17 09:54 Dose: 1 mg Hydrochlorothiazide (Microzide) 12.5 mg PO DAILY [facility] Last Admin: 09/20/17 09:54 Dose: 12.5 mg Insulin Human Regular (Humulin R Med) [address] [facility] PRN Reason: Protocol Last Admin: 09/20/17 22:00 Dose: Not Given Levetiracetam (Keppra) 500 mg PO BID [facility] Last Admin: 09/20/17 17:24 Dose: 500 mg Losartan Potassium (Cozaar) 50 mg PO DAILY [facility] Last Admin: 09/20/17 09:54 Dose: 50 mg Metformin HCl (Glucophage) 1,000 mg PO DAILY [facility] Last Admin: 09/20/17 11:55 Dose: Not Given Potassium Phos/Sodium Phos (Neutra-Phos) 1 pkt PO BID [facility] Stop: 09/22/17 18:01 Last Admin: 09/20/17 17:25 Dose: 1 pkt - Labs Labs: 09/20/17 07:00 09/20/17 07:00 PT 12.6 SECONDS (9.4-12.5) H 09/19/17 12:11 INR 1.09 09/19/17 12:11 - Constitutional Appears: Non-toxic, Chronically Ill - Head Exam Head Exam: NORMAL INSPECTION - Neck Exam Neck Exam: absent: Meningismus - Respiratory Exam Respiratory Exam: Decreased Breath Sounds - Cardiovascular Exam Cardiovascular Exam: +S1, +S2 - GI/Abdominal Exam GI & Abdominal Exam: Soft. absent: Tenderness Assessment and Plan - Assessment and Plan (Free Text) Plan: Assessment Systemic Inflammatory response syndrome probably due to vasogenic frontal cerebral edema associated with meningioma, with no evidence of sepsis or infection HTN dyslipidemia DM nephrolithiasis obesity with BMI 34 Plan will d/c Vancomycin, Rocephin and Acyclovir blood cx are negative, urine cx show contamination, PCT is only 0.15, CXR is negative for infiltrates; reviewed MRI brain showing meningioma and vasogenic edema - if cultures are negative, will d/c antibiotics discussed with Dr. Cormier - started on systemic steroids
--- NOTE | 2017-09-22 02:09 | DS ---
Copied To: Rogerio Elder MD Attending MD: Rogerio Elder MD HISTORY OF PRESENT ILLNESS: The patient is 76 years old, seen and examined, sitting in chair, seems to be comfortable. No nausea, vomiting or diarrhea. He is back to his baseline according to family. PHYSICAL EXAMINATION: VITAL SIGNS: He is afebrile, pulse 60, respirations 19, and blood pressure 117/89. LUNGS: Bilateral fair airflow. No rhonchi or crackles. HEART: S1 and S2 audible. ABDOMEN: Soft and nontender. No rebound. No guarding. NEUROLOGIC: The patient is awake, alert, oriented, and able to communicate. EXTREMITIES: Bilateral legs, no edema. According to nurse, he is walking back and forth to the bathroom and gait seems to be stable. LABORATORY EXAM: WBC is 8, hemoglobin 13, hematocrit 40, and platelets 101. Chemistry: Sodium 140, potassium 4.2, chloride 103, CO2 of 28, BUN 18, creatinine 0.7, blood sugar of 144. ASSESSMENT: 1. Status post altered mental status. 2. Frontal lobe meningioma with vasogenic edema. 3. Hypertension. 4. Ima-tfrimkv-frykxsqgv diabetes. 5. Hyperlipidemia. 6. Benign prostatic hypertrophy. 7. Coronary artery disease. 6. History of nephrolithiasis. PLAN: The patient was evaluated by a neurosurgeon. The patient was also evaluated by neurologist and their opinion, the patient should be operated and should get neurosurgical evaluation by other facilities. So he is being discharged home on Keppra 500 twice a day and Medrol Dosepak as recommended by neurologist and he will resume his medications including multivitamin, folic acid, valsartan, simvastatin, Rapaflo and metformin. He was given a prescription of Keppra and Medrol Dosepak. He will follow with his PMD and will get outpatient evaluation by neurosurgeon for further management. Rogerio Elder MD
== END 2017-09-21 13:15 | disposition home or self-care (01) | DRG 54 ==
LOC: ED 12:05 → ERH 18:27 → 5RNO 21:27
PROVIDERS: ADMIT Internal Medicine; ATTEND Internal Medicine
PROC: 009U3ZX Drainage of Spinal Canal, Percutaneous Approach, Diagnostic (ICD-10-PCS; principal; 2017-09-19)
DX: D32.9 Benign neoplasm of meninges, unspecified (principal); G93.6 Cerebral edema; R65.10 Systemic inflammatory response syndrome (SIRS) of non-infectious origin without acute organ dysfunction; E11.9 Type 2 diabetes mellitus without complications; E78.00 Pure hypercholesterolemia, unspecified; E78.5 Hyperlipidemia, unspecified; E66.9 Obesity, unspecified; Z68.34 Body mass index [BMI] 34.0-34.9, adult; I10 Essential (primary) hypertension; I25.10 Atherosclerotic heart disease of native coronary artery without angina pectoris; N20.0 Calculus of kidney; N40.0 Benign prostatic hyperplasia without lower urinary tract symptoms; Z79.82 Long term (current) use of aspirin; Z79.84 Long term (current) use of oral hypoglycemic drugs; Z87.442 Personal history of urinary calculi; R40.2412 Glasgow coma scale score 13-15, at arrival to emergency department